=== PATIENT | male | born 2000 | race Caucasian/White ===

== ENCOUNTER 2019-10-05 03:44 | Emergency (ER) | payer OTHER ==
[~2019-10-05] VITALS: Ht 177.8 cm; Wt 63.6 kg
[2019-10-05 03:48] VITALS: BP 130/71
[2019-10-05] MEDS ORDERED: OMNICEF 300MG300 MG PO (03:54)
[2019-10-05 04:15] LABS: HEMATOCRIT 44.4 % (36.0-47.0); HEMOGLOBIN 15.4 g/dl (12.5-16.1); MEAN CELL VOLUME 88 fl (80.0-95.0); MEAN CORPUSCULAR HEMOGLOBIN 30 pg (26.0-32.0); MEAN CORPUSCULAR HGB CONC 35 g/dl (33.0-37.0); MEAN PLATELET VOLUME 8.9 fl (7.4-10.4); PLATELET COUNT 250 K/mm3 (130-400); RED BLOOD COUNT 5.07 M/mm3 (4.20-5.60); REDCELL DISTRIBUTION WIDTH-CV 12.5 % (11.5-14.5)
[2019-10-05 04:26] LABS: ALBUMIN 4.6 gm/dL (3.5-5.0); CALCIUM 9.5 mg/dL (8.4-10.2); CREATININE, serum 1.03 (0.66-1.25); POTASSIUM 4.3 mmol/L (3.4-5.0); TOTAL PROTEIN 8.4 gm/dL (6.4-8.2)
[2019-10-05 04:47] LABS: EOSINOPHIL 1 % (0-4); LYMPHOCYTE 36 % (20.0-51.0); NEUTROPHILS 58 % (42.0-75.2); PLATELET ESTIMATE NORMAL (NORMAL)
[2019-10-05 05:39] VITALS: PULSE 87; TEMP 98.5
== END 2019-10-05 05:39 | disposition home or self-care (01) ==
LOC: COL.ER 03:44
PROVIDERS: Emergency Medicine
DX: J02.9 Acute pharyngitis, unspecified (principal); B34.9 Viral infection, unspecified
CPT/HCPCS: J1200; J1885; J2405; J3010; J7030